=== PATIENT | female | born 1995 | race Caucasian/White ===

== ENCOUNTER 2016-10-09 08:08 | Day surgery (SDC) | payer BC ==
[~2016-10-09 08:08] MED LIST: MULTIVITAMIN1 TAB; NUVARING VAGIN1 EACH VG
== END 2016-10-09 15:25 ==
LOC: SRG 08:08 → SHSB 08:09 → ORE 10:00
PROC: 09BM0ZZ Excision of Nasal Septum, Open Approach (ICD-10-PCS; principal; 2016-10-09)
PROC: 09Q Ear, Nose, Sinus, Repair (ICD-10-PCS; 2016-10-09)
PROC: 09Q Ear, Nose, Sinus, Repair (ICD-10-PCS; 2016-10-09)
PROC: 09TU4ZZ Resection of Right Ethmoid Sinus, Percutaneous Endoscopic Approach (ICD-10-PCS; 2016-10-09)
PROC: 8E09XBZ Computer Assisted Procedure of Head and Neck Region (ICD-10-PCS; 2016-10-09)
DX: J32.4 Chronic pansinusitis (principal); F41.1 Generalized anxiety disorder; F41.0 Panic disorder [episodic paroxysmal anxiety]; F41.8 Other specified anxiety disorders; J20.9 Acute bronchitis, unspecified; J34.3 Hypertrophy of nasal turbinates; J34.2 Deviated nasal septum; J34.89 Other specified disorders of nose and nasal sinuses; L30.9 Dermatitis, unspecified; L70.9 Acne, unspecified; N91.2 Amenorrhea, unspecified; S46.912A Strain of unspecified muscle, fascia and tendon at shoulder and upper arm level, left arm, initial encounter; Z30.40 Encounter for surveillance of contraceptives, unspecified; Z01.419 Encounter for gynecological examination (general) (routine) without abnormal findings; Z01.818 Encounter for other preprocedural examination; Z79.899 Other long term (current) drug therapy
CPT/HCPCS: C1726; C2625; J0171; J7030

== ENCOUNTER 2016-11-28 12:48 | Emergency (ER) | payer BC ==
[2016-11-28 14:38] LABS: BASO % 0.2 % (0-2); EOS % 0.8 % (0-7); HCT-HEMATOCRIT 37.5 % (34.0-49.0); HGB-HEMOGLOBIN 12.3 gm/dl (12.0-15.5); IMMATURE GRANULOCYTES ABSOLUTE 0.02 tho/cmm (0-0.03); IMMATURE GRANULOCYTES PERCENT 0.4 % (0-0.3); LYMPH % 25.8 % (20-45); LYMPH ABSOLUTE COUNT 1.3 tho/cmm (0.8-4.5); MCH (MEAN CORPUSCULAR HGB) 25.1 pg (28.0-32.0); MCHC MEAN CORPUSCULAR HGB CONC 32.8 % (32.0-36.0); MCV (MEAN CELL VOLUME) 76.5 fl (82.0-96.0); MEAN PLATELET VOLUME 10.2 cmc (9.4-12.4); MONO % 11.5 % (0-12); MONOCYTE ABSOLUTE COUNT 0.6 tho/cmm (0.0-1.2); NEUTROPHIL ABSOLUTE COUNT 3.1 tho/cmm (1.6-8.0); NEUTROPHIL-AUTOMATED 3.1 tho/cmm (1.6-8.0); NEUTROPHILS % 61.3 % (40-80); PLATELET COUNT 290 tho/cmm (150-450); RED CELL DISTRIBUTION WIDTH 13.4 % (12.4-16.4)
[2016-11-28 14:43] LABS: PREGNANCY-SERUM NEGATIVE (NEGATIVE)
[2016-11-28 14:48] LABS: ALB/GLOB RATIO 0.6 (0.8-2.0); ALKALINE PHOSPHATASE 95 U/L (33-138); ALT/SGPT 16 U/L (12-78); ANION GAP 14 mmol/L (0-20); AST/SGOT 17 U/L (10-40); BILIRUBIN,TOTAL 0.3 mg/dl (0-1.5); BLOOD UREA NITROGEN 7 mg/dl (6-24); CALCIUM 8.6 mg/dl (8.5-10.5); CARBON DIOXIDE-VENOUS 21 mmol/L (22-32); CHLORIDE 108 mmol/l (96-110); CREATININE 0.64 mg/dl (0.50-1.10); GLUCOSE 86 mg/dL (70-110); LIPASE 180 U/L (73-393); POTASSIUM 3.9 mmol/L (3.7-5.1); SODIUM 139 mmol/L (135-145); eGFR VALUE FOR BLACK >90 mL/Min
[2016-11-28 15:14] LABS: URINE BILIRUBIN NEGATIVE (NEG); URINE BLOOD NEGATIVE (NEG); URINE GLUCOSE (UA) NEGATIVE (NEG); URINE KETONE NEGATIVE (NEG); URINE LEUKOCYTE ESTERASE NEGATIVE (NEG); URINE NITRITE NEGATIVE (NEG); URINE PROTEIN NEGATIVE (NEG)
[2016-11-28 15:18] LABS: URINE APPEARANCE CLEAR; URINE COLOR YELLOW
[2016-11-28] MEDS ORDERED: PRILOSEC OTC20 M1 PO (16:08)
[2016-11-28] MEDS ORDERED: NORCO 5-325 TA1 EACH PO (16:08)
== END 2016-11-28 16:32 ==
LOC: EDMED 12:48
PROVIDERS: Physician Assistant
DX: R10.11 Right upper quadrant pain (principal); Z98.890 Other specified postprocedural states
CPT/HCPCS: J2270; J2405; J7030